=== PATIENT | male | born 1965 | race Caucasian/White ===

== ENCOUNTER 2018-03-28 11:28 | Emergency (ER) | payer MEDICAID ==
[2018-03-28] MEDS ORDERED: NS 1,000 ML IV ONE ×2 (12:05→14:23)
[2018-03-28] MEDS ORDERED: ONDANSETRON 4 MG/2 ML VIAL IVP ONE (12:05)
--- NOTE | 2018-03-28 12:38 | EDPHY ---
General - History Smoking Status: Never smoked Time Seen by Provider: 03/28/18 12:04 Narrative: CHIEF COMPLAINT: Abdominal pain, back pain HISTORY OF PRESENT ILLNESS: Patient presents with clearance of abdominal pain. This pain started approximately 6 days ago. It waxes and wanes. It is primarily epigastrium in the low back. Worse with intake by mouth. Some improvement NPO. No fever chills. Minimal nausea. No vomiting. No constipation or bloody stools. No trauma or injury. No chest pain or shortness of breath. No cough. No other associated complaints or modifying factors. Did have a recent colonoscopy within the past month revealed diverticula without other abnormalities. REVIEW OF SYSTEMS: Ten systems reviewed and are negative unless otherwise noted in the HPI PCP: Dr. Brown SPECIALISTS: [facility] PAST MEDICAL HISTORY: Diverticula on colonoscopy recently PAST SURGICAL HISTORY: No recent surgical history SOCIAL HISTORY: Nonsmoker. Lives and works here independently FAMILY HISTORY: Noncontributory EXAMINATION General Appearance: Alert, no distress. Well-developed and well-nourished Head: normocephalic, atraumatic Eyes: Pupils equal and round, no conjunctival pallor or injection ENT, Mouth: Mucous membranes moist Neck: Normal inspection, supple, non-tender Respiratory: Lungs are clear to auscultation Cardiovascular: Regular rate and rhythm Gastrointestinal: Abdomen is soft and nondistended. There is tenderness in the epigastrium. No tympany. No rigidity. No palpable masses. No CVA tenderness. Back: non-tender, no bony abnormalities Neurological: A&O, nonfocal, normal gait Skin: Warm and dry, no rash no petechiae or purpura Extremities: Nontender, no pedal edema Psychiatric: Mood and affect normal DIFFERENTIAL DIAGNOSES: Including but not limited to pancreatitis, cholecystitis, gastritis, cholelithiasis, aneurysm, enteritis, colitis, diverticulitis, ACS MDM: 12:05 p.m. Epigastric and lower back pain of 6 days duration. Abdominal exam reveals some tenderness in the epigastrium. There is no tenderness of the back. No chest pain. Vital signs are within normal limits. He is in no acute distress but I have ordered laboratory studies and CT scan abdomen pelvis. Suspect pancreatitis or gallbladder etiology at this time. 1:30 p.m. Laboratory studies reveal elevated hyperbilirubinemia without any 2:15 p.m. Notified by radiologist Dr. Roberts. US findings of the RUQ discussed. 2:20 p.m. Patient re-evaluated. His pain is increasing in the epigastrium. I do feel that he warrants a CT scan the abdomen pelvis at this time. He is consented to proceed with this. I have also ordered further pain medication, IV Protonix and IV fluid. 3:25 p.m. Notified by radiologist Dr. Jc. CT scan abdomen pelvis reveals no acute findings. 3:40 p.m. Patient re-evaluated. He is still having some discomfort but feels a little bit better. I have ordered a GI cocktail as I suspect may be gastritis. 4:40 p.m. Patient re-evaluated. He states that the GI cocktail has nearly completely resolved his symptoms. He is no longer having pain. He feels hungry. He has no nausea. He says that he feels significantly better would like to go home. I discussed that this increases the likelihood of gastritis, we discussed marijuana cessation further. I do feel he is stable for discharge home, and he would like to go home. I will discharge him home with Carafate, nausea medicine and a clear liquid diet. He has instructions to contact his primary care physician. I have provided the on-call GI physician for him to contact as well. ED precautions including return of pain, fever, calming or intolerance of intake by mouth. He is comfortable this plan and discharged home stable condition SUPERVISION: Patient was independently examined, but I discussed the case with my secondary supervising physician Dr. Don and Dr. Hollis ([facility]) The patient was evaluated and managed by the physician assistant professor of forestry. I have reviewed this chart and I agree with the findings and plan of care as documented , as indicated by my signature. I am the secondary supervising physician. ( Leandra Hollis) - Objective Vital Signs: Initial Vital Signs Temperature (C) 36.4 C 03/28/18 11:31 Heart Rate 62 03/28/18 11:31 Respiratory Rate 18 03/28/18 11:31 Blood Pressure 128/69 H 03/28/18 11:31 O2 Sat (%) 99 03/28/18 11:31 O2 Delivery Mode Room Air Allergies/Adverse Reactions: Penicillins Allergy (Verified 03/28/18 11:30) Home Medications: Medication Instructions Recorded Ondansetron Odt [Zofran Odt 4 mg 4 mg PO Q6 PRN #12 tab 03/28/18 (*)] Sucralfate [Carafate Oral Liquid 10 ml PO QID PRN #240 ml 03/28/18 100 mg/ml] Laboratory Results: Laboratory Results 03/28/18 12:40 03/28/18 12:40 Medications Given: Discontinued Medications Al Hydroxide/Mg Hydroxide (Maalox Susp) 30 ml PO ONCE ONE Stop: 03/28/18 15:50 Last Admin: 03/28/18 16:03 Dose: 30 ml Hyoscyamine Sulfate (Levsin, Hyomax-Sl) 0.25 mg PO ONCE ONE Stop: 03/28/18 15:50 Last Admin: 03/28/18 16:03 Dose: 0.25 mg Sodium Chloride (Ns) 1,000 mls @ 0 mls/hr IV EDNOW ONE; Wide Open PRN Reason: Protocol Stop: 03/28/18 12:06 Last Admin: 03/28/18 12:42 Dose: 1,000 mls Sodium Chloride (Ns) 1,000 mls @ 0 mls/hr IV EDNOW ONE; Wide Open PRN Reason: Protocol Stop: 03/28/18 14:24 Last Admin: 03/28/18 14:55 Dose: 1,000 mls Lidocaine (Lidocaine 2% Viscous) 15 ml PO ONCE ONE Stop: 03/28/18 15:50 Last Admin: 03/28/18 16:03 Dose: 15 ml Morphine Sulfate (Morphine) 6 mg IVP EDNOW ONE Stop: 03/28/18 12:06 Last Admin: 03/28/18 12:42 Dose: 6 mg Morphine Sulfate (Morphine) 4 mg IVP EDNOW ONE Stop: 03/28/18 14:24 Last Admin: 03/28/18 14:57 Dose: 4 mg Ondansetron HCl (Zofran) 4 mg IVP EDNOW ONE Stop: 03/28/18 12:06 Last Admin: 03/28/18 12:42 Dose: 4 mg Pantoprazole Sodium (Protonix) 40 mg IVP EDNOW ONE Stop: 03/28/18 14:24 Last Admin: 03/28/18 14:57 Dose: 40 mg Point of Care Test Results: Chemistry 03/28/18 12:56 POC Troponin I 0.01 ng/mL ng/mL (0.00-0.08) Departure - Departure Disposition: Home, Routine, Self-Care Clinical Impression: Gastritis, Epigastric pain Condition: Good Instructions: Gastritis (ED), Epigastric Pain (ED) Additional Instructions: 1. Clear liquid diet. Advance slowly as tolerated 2. Carafate as prescribed every 6-8 hours as needed. Do not combine with the medications or foods within 1 hr ingestion 3. Nausea medication as prescribed as needed 4. Contact primary care physician to be seen outpatient and to discuss GI referral 5. Return to emergency department if you do not have complete resolution within 24 hr. Return sooner for return of pain, fever, nausea vomiting or intolerance of intake by mouth Referrals: Uriah Brown MD [Primary Care Provider] - As per Instructions Marv Mckeon MD [Medical Doctor] - As per Instructions Prescriptions: Ondansetron Odt [Zofran Odt 4 mg (*)] 4 mg PO Q6 PRN #12 tab PRN Reason: Nausea/Vomiting, Use 1st Sucralfate [Carafate Oral Liquid 100 mg/ml] 10 ml PO QID PRN #240 ml PRN Reason: abdominal pain
--- NOTE | 2018-03-28 12:51 | CPEKG ---
Heart Rate: 51 RR Interval: 1176 P-R Interval: 136 QRSD Interval: 98 QT Interval: 428 QTC Interval: 395 P Marion: 73 QRS Marion: 0 T Wave Marion: 51 EKG Severity - ABNORMAL ECG - EKG Impression: SINUS RHYTHM EKG Impression: RIGHT ATRIAL ABNORMALITY EKG Impression: CONSIDER RIGHT VENTRICULAR HYPERTROPHY EKG Impression: ST elevation in lead V1-V3, no old ECG to compare. ECG pattern c..w early EKG Impression: repolarization Electronically Signed By: Peter Yeung 29-Mar-2018 16:51:37
[2018-03-28 13:00] LABS: PLATELET COUNT 249 10^3/uL (150-400)
[2018-03-28 13:59] LABS: INR 0.99 (0.83-1.16); PROTIME(PATIENT) 13.3 SEC (12.0-15.0)
[2018-03-28] MEDS ORDERED: PANTOPRAZOLE SODIUM 40 MG VIAL IVP ONE (14:23)
[2018-03-28] MEDS ORDERED: IOPAMIDOL (ISOVUE-300) 100 ML BTL ONE (15:09)
[2018-03-28] MEDS ORDERED: LIDOCAINE 2% VISCOUS 15 ML UDCUP PO ONE (15:49)
[2018-03-28] MEDS ORDERED: HYOSCYAMINE SULFATE 0.125 MG TAB PO ONE (15:49)
[2018-03-28] MEDS ORDERED: MAG HYDROX/AL HYDROX/SIMETH 30 ML UDCUP PO ONE (15:49)
[2018-03-28 17:01] VITALS: BP 123/81
== END 2018-03-28 17:15 | disposition home or self-care (01) ==
DX: K29.70 Gastritis, unspecified, without bleeding (principal); E86.9 Volume depletion, unspecified
CPT/HCPCS: 84484-PO; 96374; J2270; J2405; Q9967